=== PATIENT | male | born 1935 | race Caucasian/White ===

== ENCOUNTER 2017-06-06 19:26 | Emergency (ER) | payer MEDICARE, OTHER ==
[~2017-06-06] VITALS: Ht 167.6 cm; Wt 64.5 kg
[~2017-06-06 19:26] MED LIST: AMLO5TAB4 PO; ASPI81TA52 PO; AZIT250T PO; BENA20TA2 PO; CHLO25TA2 PO; CLIN-80 PO; CLOP75TA33 PO; LUBI8CAP PO; MULT-1179 PO; PANT40TA4 PO; SIMV10TA6 PO
[2017-06-06 19:29] VITALS: BP 145/75
== END 2017-06-06 20:52 | disposition home or self-care (01) ==
LOC: ER 19:26
DX: S30.811A Abrasion of abdominal wall, initial encounter (principal); E78.00 Pure hypercholesterolemia, unspecified; I10 Essential (primary) hypertension; K21.9 Gastro-esophageal reflux disease without esophagitis; Z95.0 Presence of cardiac pacemaker; Z86.73 Personal history of transient ischemic attack (TIA), and cerebral infarction without residual deficits; Z79.82 Long term (current) use of aspirin; Z79.899 Other long term (current) drug therapy; X58.XXXA Exposure to other specified factors, initial encounter; Y93.89 Activity, other specified; Y92.89 Other specified places as the place of occurrence of the external cause; Y99.8 Other external cause status
CPT/HCPCS: 99282

== ENCOUNTER 2017-09-11 14:31 | Emergency (ER) | payer MEDICARE, OTHER ==
[~2017-09-11] VITALS: Ht 167.6 cm; Wt 66.0 kg
[~2017-09-11 14:31] MED LIST changes: +ASCO10007; +ASCO10007 PO; +ATOR10TA87 PO; -AZIT250T PO; +CALCIUM PO; +CARV6.253 PO; +CHOL200016 PO; -CLIN-80 PO; +CLOP75TA15 PO; +CYAN5000 PO; +DOCU250C88 PO; +IRON18TA PO; +MELA3TAB PO; +NUTR113P PO; +OMEG10006 PO; +SAW/1TAB2 PO; +SELE200T25 PO; +UBID50TA3 PO; +VITA2500 PO; +[UNRECOGNIZED DRUG - CODE] PO; +[UNRECOGNIZED DRUG - OTHER] PO; +[UNRECOGNIZED DRUG - OTHER] PO
[2017-09-11 14:38] VITALS: BP 149/75
[2017-09-11] MEDS ORDERED: LIDOcaine 1.5% w/epinephrine 1:200,000 5ml ampul IJ ONE (15:00)
[2017-09-11] MEDS ORDERED: TETanus/Pertussis (Acell)/Diphther VAC/PF (Tdap-Adult) 0.5ml syringe IM ONE (15:40)
== END 2017-09-11 16:17 | disposition home or self-care (01) ==
LOC: ER 14:31
DX: S51.812A Laceration without foreign body of left forearm, initial encounter (principal); E78.00 Pure hypercholesterolemia, unspecified; I10 Essential (primary) hypertension; K21.9 Gastro-esophageal reflux disease without esophagitis; Z96.89 Presence of other specified functional implants; Z95.2 Presence of prosthetic heart valve; Z87.891 Personal history of nicotine dependence; Z79.82 Long term (current) use of aspirin; Z79.01 Long term (current) use of anticoagulants; Z79.899 Other long term (current) drug therapy; W54.0XXA Bitten by dog, initial encounter; Y93.89 Activity, other specified; Y92.89 Other specified places as the place of occurrence of the external cause; Y99.8 Other external cause status
CPT/HCPCS: 90471; 90715; 99284; A6449; J3490

== ENCOUNTER 2017-10-11 14:45 | Inpatient (IN) | payer MEDICARE, OTHER ==
[~2017-10-11] VITALS: Ht 167.6 cm; Wt 62.9 kg
[~2017-10-11 14:45] MED LIST changes: -BENA20TA2 PO; +BENA20TA82 PO; -CHOL200016 PO; +CHOL200085 PO
[2017-10-11 15:47] LABS: BASOPHILS % (AUTO) 0.6 % (0-1); EOSINOPHILS % (AUTO) 0.6 % (0-6); HEMATOCRIT 32.4 % (42.0-52.0); LYMPHOCYTES # (AUTO) 2.3 X10'3 (1.1-4.8); LYMPHOCYTES % (AUTO) 63.8 % (21-51); MEAN CORPUSCULAR HEMOGLOBIN 31.8 PG (27.0-31.0); MEAN CORPUSCULAR HGB CONC 33.9 % (33.0-36.5); MEAN PLATELET VOLUME 8.6 FL (7.4-10.4); MONOCYTES # (AUTO) 0.4 X10'3 (0-0.9); MONOCYTES % (AUTO) 10.3 % (2-12); NEUTROPHILS # (AUTO) 0.9 X10'3 (1.8-7.7); NEUTROPHILS % (AUTO) 24.7 % (42-75); PLATELET COUNT 126 X10'3 (140-440); RED BLOOD COUNT 3.44 X10'6 (4.70-6.10); RED CELL DISTRIBUTION WIDTH 14.9 % (11.5-14.5); WHITE BLOOD COUNT 3.6 X10'3 (4.5-11.0)
[2017-10-11 15:54] LABS: INR 1.1 INR; PARTIAL THROMBOPLASTIN TIME 30 SECONDS (22-32)
[2017-10-11 15:57] LABS: ALANINE AMINOTRANSFERASE 128 U/L (12-78); ALBUMIN/GLOBULIN RATIO 0.6 (1.1-1.5); ALKALINE PHOSPHATASE 368 IU/L (46-116); ANION GAP 10 (8-16); ASPARTATE AMINO TRANSFERASE 57 U/L (10-37); BILIRUBIN,TOTAL 0.3 MG/DL (0.1-1.0); BLOOD UREA NITROGEN 52 MG/DL (7-18); BUN/CREATININE RATIO 17.8 (5.4-32.0); CALCIUM 8.6 MG/DL (8.5-10.1); CHLORIDE 106 MMOL/L (99-107); CREATININE 2.92 MG/DL (0.60-1.10); GLUCOSE 94 MG/DL (70-104); POTASSIUM 4.9 MMOL/L (3.5-5.1); SODIUM 139 MMOL/L (135-145); TOTAL CARBON DIOXIDE 22.7 MMOL/L (24-32); eGFR 21 ML/MIN
[2017-10-11 16:20] LABS: TOTAL CELLS COUNTED 100
[2017-10-11 16:23] LABS: PLATELET ESTIMATE DECREASED; SMUDGE CELLS FEW
[2017-10-11 18:31] LABS: LIPASE 387 U/L (73-393)
[2017-10-11] MEDS ORDERED: normal saline 1000ml 1,000 ML IV SCH (20:44)
[2017-10-11] MEDS ORDERED: ondansetron/PF 4mg/2ml inj IV PRN (20:45)
[2017-10-11] MEDS ORDERED: FURO40TA4 PO (21:00)
[2017-10-11 22:00] VITALS: BP 137/71
[2017-10-12] VITALS: BP 125/68
[2017-10-12] MEDS: Melatonin 3mg tablet PO SCH ×2 (00:30→20:32)
[2017-10-12 03:32] LABS: BASOPHILS % (AUTO) 0.5 % (0-1); EOSINOPHILS % (AUTO) 0.6 % (0-6); HEMATOCRIT 30.2 % (42.0-52.0); LYMPHOCYTES # (AUTO) 1.7 X10'3 (1.1-4.8); MEAN CORPUSCULAR HEMOGLOBIN 31.3 PG (27.0-31.0); MEAN CORPUSCULAR HGB CONC 33.2 % (33.0-36.5); MEAN CORPUSCULAR VOLUME 94.2 FL (78-98); MEAN PLATELET VOLUME 8.6 FL (7.4-10.4); MONOCYTES # (AUTO) 0.3 X10'3 (0-0.9); MONOCYTES % (AUTO) 11.2 % (2-12); NEUTROPHILS # (AUTO) 0.6 X10'3 (1.8-7.7); NEUTROPHILS % (AUTO) 22.7 % (42-75); PLATELET COUNT 110 X10'3 (140-440); WHITE BLOOD COUNT 2.7 X10'3 (4.5-11.0)
[2017-10-12 03:58] LABS: PLATELET ESTIMATE NORMAL; TOTAL CELLS COUNTED 100
[2017-10-12 03:59] LABS: SMUDGE CELLS FEW
[2017-10-12 05:07] LABS: CHLORIDE 108 MMOL/L (99-107); POTASSIUM 4.3 MMOL/L (3.5-5.1)
[2017-10-12 05:25] LABS: ALANINE AMINOTRANSFERASE 106 U/L (12-78); ALBUMIN 2.7 G/DL (3.4-5.0); ALBUMIN/GLOBULIN RATIO 0.6 (1.1-1.5); ALKALINE PHOSPHATASE 310 IU/L (46-116); ANION GAP 13 (8-16); ASPARTATE AMINO TRANSFERASE 49 U/L (10-37); BILIRUBIN,TOTAL 0.3 MG/DL (0.1-1.0); BLOOD UREA NITROGEN 52 MG/DL (7-18); BUN/CREATININE RATIO 19.6 (5.4-32.0); CALCIUM 8.7 MG/DL (8.5-10.1); CREATININE 2.65 MG/DL (0.60-1.10); GLUCOSE 82 MG/DL (70-104); SODIUM 140 MMOL/L (135-145); TOTAL CARBON DIOXIDE 18.8 MMOL/L (24-32); TOTAL PROTEIN 7.3 G/DL (6.4-8.2); eGFR 23 ML/MIN
[2017-10-12 07:00] VITALS: BP 136/58
[2017-10-12] MEDS: docusate sod 250mg capsule PO SCH (07:48)
[2017-10-12] MEDS: pantoprazole 40mg Tablet.DR PO SCH (07:48)
[2017-10-12] MEDS: lisinopril 10 MG tablet PO SCH (07:49)
[2017-10-12] MEDS: atorvastatin 10mg tablet PO SCH (07:49)
[2017-10-12] MEDS: carvedilol 6.25mg tablet PO SCH ×2 (07:49→20:00)
[2017-10-12] MEDS: multivitamins, therapeutics tablet PO SCH (07:49)
[2017-10-12] MEDS: amLODIPine 5mg tablet PO SCH (07:50)
[2017-10-12] MEDS ORDERED: furosemide 20MG tablet PO SCH (08:00)
[2017-10-12] MEDS ORDERED: furosemide 40mg tablet PO SCH (08:00)
[2017-10-12] MEDS ORDERED: clopidogrel 75mg tablet PO SCH (08:00)
[2017-10-12] MEDS ORDERED: aspirin 81mg tablet.DR PO SCH (08:00)
[2017-10-12] MEDS: normal saline 1000ml 1,000 ML IV SCH ×2 (10:54→16:30)
[2017-10-12] MEDS ORDERED: normal saline 500ml IV soln 500 ML IV ONE (10:55)
[2017-10-12 12:00] VITALS: BP 121/59
[2017-10-12 12:53] LABS: CLARITY,URINE CLEAR (Clear); COLOR,URINE YELLOW (Yellow); GLUCOSE, URINE NEGATIVE (Neg); KETONES,URINE NEGATIVE (Neg); LEUKOCYTE ESTERASE ,URINE NEGATIVE (Neg); NITRITES, URINE NEGATIVE (Neg); OCCULT BLOOD,URINE NEGATIVE (Neg); PH,URINE 5.5 (4.8-8.0); PROTEIN,URINE NEGATIVE (Neg); UROBILINOGEN,URINE 0.2 E.U/dL (0.2-1.0)
[2017-10-12 12:57] LABS: UA COLLECTION TYPE NON-SPECIFIED
[2017-10-12 13:41] LABS: CREATINE KINASE 25 U/L (39-308); PHOSPHORUS 4.2 MG/DL (2.3-4.5)
[2017-10-12 20:00] VITALS: BP 99/47
[2017-10-12] MEDS ORDERED: Melatonin 3mg tablet PO SCH (21:00)
[2017-10-13] VITALS: BP 127/54
[2017-10-13] MEDS: normal saline 1000ml 1,000 ML IV SCH (04:08)
[2017-10-13 05:09] LABS: BASOPHILS % (AUTO) 0.7 % (0-1); EOSINOPHILS % (AUTO) 1.1 % (0-6); HEMOGLOBIN 9.6 g/dl (14.0-17.9); LYMPHOCYTES # (AUTO) 1.4 X10'3 (1.1-4.8); LYMPHOCYTES % (AUTO) 58.3 % (21-51); MEAN CORPUSCULAR HEMOGLOBIN 31.3 PG (27.0-31.0); MEAN CORPUSCULAR HGB CONC 33.3 % (33.0-36.5); MEAN CORPUSCULAR VOLUME 94.1 FL (78-98); MEAN PLATELET VOLUME 8.7 FL (7.4-10.4); MONOCYTES # (AUTO) 0.3 X10'3 (0-0.9); MONOCYTES % (AUTO) 11.6 % (2-12); NEUTROPHILS # (AUTO) 0.7 X10'3 (1.8-7.7); NEUTROPHILS % (AUTO) 28.3 % (42-75); PLATELET COUNT 112 X10'3 (140-440); RED BLOOD COUNT 3.08 X10'6 (4.70-6.10); RED CELL DISTRIBUTION WIDTH 15.1 % (11.5-14.5); WHITE BLOOD COUNT 2.5 X10'3 (4.5-11.0)
[2017-10-13 05:47] LABS: ALANINE AMINOTRANSFERASE 86 U/L (12-78); ALBUMIN 2.5 G/DL (3.4-5.0); ALBUMIN/GLOBULIN RATIO 0.6 (1.1-1.5); ALKALINE PHOSPHATASE 269 IU/L (46-116); ANION GAP 9 (8-16); ASPARTATE AMINO TRANSFERASE 47 U/L (10-37); BILIRUBIN,TOTAL 0.3 MG/DL (0.1-1.0); BLOOD UREA NITROGEN 46 MG/DL (7-18); BUN/CREATININE RATIO 18.7 (5.4-32.0); CALCIUM 8.4 MG/DL (8.5-10.1); CHLORIDE 110 MMOL/L (99-107); CREATININE 2.46 MG/DL (0.60-1.10); POTASSIUM 4.6 MMOL/L (3.5-5.1); SODIUM 140 MMOL/L (135-145); TOTAL CARBON DIOXIDE 21.2 MMOL/L (24-32); eGFR 25 ML/MIN
[2017-10-13 05:49] LABS: GLUCOSE 90 MG/DL (70-104)
[2017-10-13 06:08] LABS: LYMPHOCYTES % (MANUAL) 55 % (21-51); MONOCYTES % (MANUAL) 7 % (2-12); NEUTROPHILS % (MANUAL) 38 % (42-75); PLATELET ESTIMATE DECREASED; SMUDGE CELLS 1+; TOTAL CELLS COUNTED 100
[2017-10-13 07:00] VITALS: BP 159/72
[2017-10-13] MEDS: pantoprazole 40mg Tablet.DR PO SCH (07:18)
[2017-10-13] MEDS: lisinopril 10 MG tablet PO SCH (07:18)
[2017-10-13] MEDS: carvedilol 6.25mg tablet PO SCH (07:18)
[2017-10-13] MEDS: multivitamins, therapeutics tablet PO SCH (07:18)
[2017-10-13] MEDS: docusate sod 250mg capsule PO SCH (07:18)
[2017-10-13] MEDS: atorvastatin 10mg tablet PO SCH (07:18)
[2017-10-13] MEDS: amLODIPine 5mg tablet PO SCH (07:18)
[2017-10-13 11:42] VITALS: BP 125/48
== END 2017-10-13 15:46 | disposition home or self-care (01) | DRG 438 ==
LOC: ER 14:45 → ED HOLD 20:44 → CMPBEDREQ 21:47 → SUR 3N 21:50
PROVIDERS: ADMIT Internal Medicine; ATTEND Family Medicine
DX: K86.9 Disease of pancreas, unspecified (principal); N17.0 Acute kidney failure with tubular necrosis; E44.0 Moderate protein-calorie malnutrition; D61.9 Aplastic anemia, unspecified; N18.4 Chronic kidney disease, stage 4 (severe); E78.00 Pure hypercholesterolemia, unspecified; M10.9 Gout, unspecified; I25.10 Atherosclerotic heart disease of native coronary artery without angina pectoris; I12.9 Hypertensive chronic kidney disease with stage 1 through stage 4 chronic kidney disease, or unspecified chronic kidney disease; D63.8 Anemia in other chronic diseases classified elsewhere; I71.4 Abdominal aortic aneurysm, without rupture; K21.9 Gastro-esophageal reflux disease without esophagitis; Z86.73 Personal history of transient ischemic attack (TIA), and cerebral infarction without residual deficits; Z95.0 Presence of cardiac pacemaker; Z87.891 Personal history of nicotine dependence; Z95.2 Presence of prosthetic heart valve; Z68.22 Body mass index [BMI] 22.0-22.9, adult; Z79.899 Other long term (current) drug therapy
CPT/HCPCS: 36415; 71045; 74176; 80053; 81003; 82550; 83690; 83735; 83880; 84100; 84443; 84484; 85025; 85610; 85730; 86301; 87070; 93005; 93306; 99285; J7030

== ENCOUNTER 2019-01-04 06:51 | Emergency (ER) | payer MEDICARE, OTHER ==
[~2019-01-04] VITALS: Ht 170.2 cm; Wt 64.0 kg
[~2019-01-04 06:51] MED LIST changes: -ASCO10007; -ASCO10007 PO; -CALCIUM PO; -CHLO25TA2 PO; -CHOL200085 PO; -CLOP75TA33 PO; -CYAN5000 PO; -IRON18TA PO; -MELA3TAB PO; +MELA3TAB64 PO; -NUTR113P PO; -OMEG10006 PO; +ONDA4TAB12 PO; -PANT40TA4 PO; -SAW/1TAB2 PO; -SELE200T25 PO; -SIMV10TA6 PO; -UBID50TA3 PO; -VITA2500 PO; -[UNRECOGNIZED DRUG - CODE] PO; -[UNRECOGNIZED DRUG - OTHER] PO; -[UNRECOGNIZED DRUG - OTHER] PO
--- NOTE | 2019-01-04 07:09 | NUR ---
STATES HE TAKES PLAVIX
[2019-01-04] MEDS ORDERED: acetaminophen 325mg tablet PO ONE ×2 (07:45→07:50)
[2019-01-04 08:07] LABS: D-DIMER 1.77 MG/L FEU (0-0.50)
--- NOTE | 2019-01-04 08:29 | NUR ---
Karen from [facility] called she will be down in a few min.
[2019-01-04 09:10] VITALS: BP 155/77
== END 2019-01-04 09:12 | disposition home or self-care (01) ==
LOC: ER 06:52
DX: S86.912A Strain of unspecified muscle(s) and tendon(s) at lower leg level, left leg, initial encounter (principal); S40.022A Contusion of left upper arm, initial encounter; E78.00 Pure hypercholesterolemia, unspecified; I10 Essential (primary) hypertension; K21.9 Gastro-esophageal reflux disease without esophagitis; F10.99 Alcohol use, unspecified with unspecified alcohol-induced disorder; Z86.73 Personal history of transient ischemic attack (TIA), and cerebral infarction without residual deficits; Z95.0 Presence of cardiac pacemaker; Z79.82 Long term (current) use of aspirin; Z79.899 Other long term (current) drug therapy; X58.XXXA Exposure to other specified factors, initial encounter; Y93.89 Activity, other specified; Y92.89 Other specified places as the place of occurrence of the external cause; Y99.8 Other external cause status; Y90.9 Presence of alcohol in blood, level not specified
CPT/HCPCS: 36415; 85379; 93971; 99284

== ENCOUNTER 2019-11-03 22:24 | Emergency (ER) | payer MEDICARE, OTHER ==
[~2019-11-03] VITALS: Ht 167.6 cm; Wt 69.0 kg
[~2019-11-03 22:24] MED LIST changes: -DOCU250C88 PO; +DOCU250C89 PO; +MELA3TAB39 PO; -MELA3TAB64 PO
[2019-11-04 00:32] LABS: BASOPHILS % (AUTO) 0.5 % (0-1); EOSINOPHILS # (AUTO) 0.1 X10'3 (0-0.9); EOSINOPHILS % (AUTO) 2.3 % (0-6); LYMPHOCYTES # (AUTO) 0.8 X10'3 (1.1-4.8); LYMPHOCYTES % (AUTO) 13.5 % (21-51); MEAN CORPUSCULAR HEMOGLOBIN 32.3 PG (27.0-31.0); MEAN CORPUSCULAR HGB CONC 33.4 g/dL (33.0-36.5); MEAN CORPUSCULAR VOLUME 96.6 FL (78-98); MEAN PLATELET VOLUME 9.3 FL (7.4-10.4); MONOCYTES # (AUTO) 0.5 X10'3 (0-0.9); MONOCYTES % (AUTO) 8.2 % (2-12); NEUTROPHILS # (AUTO) 4.4 X10'3 (1.8-7.7); NEUTROPHILS % (AUTO) 75.5 % (42-75); PLATELET COUNT 126 X10'3 (140-440); RED BLOOD COUNT 3.11 X10'6 (4.70-6.10); RED CELL DISTRIBUTION WIDTH 15.9 % (11.5-14.5); WHITE BLOOD COUNT 5.8 X10'3 (4.5-11.0)
[2019-11-04] MEDS ORDERED: ciprofloxacin 250mg tablet PO ONE (00:40)
[2019-11-04] MEDS ORDERED: metroNIDAZOLE 500mg tablet PO ONE (00:40)
[2019-11-04 00:43] LABS: ALANINE AMINOTRANSFERASE 15 U/L (12-78); ALBUMIN 3.2 G/DL (3.4-5.0); ALBUMIN/GLOBULIN RATIO 0.9 (1.1-1.5); ALKALINE PHOSPHATASE 88 IU/L (46-116); ANION GAP 8 (8-16); ASPARTATE AMINO TRANSFERASE 13 U/L (10-37); BILIRUBIN,TOTAL 0.2 MG/DL (0.1-1.0); BLOOD UREA NITROGEN 54 MG/DL (7-18); BUN/CREATININE RATIO 22.4 (5.4-32.0); CALCIUM 8.5 MG/DL (8.5-10.1); CHLORIDE 108 MMOL/L (99-107); CREATININE 2.41 MG/DL (0.60-1.10); GLUCOSE 93 MG/DL (70-104); LIPASE 220 U/L (73-393); POTASSIUM 5.1 MMOL/L (3.5-5.1); SODIUM 137 MMOL/L (135-145); TOTAL CARBON DIOXIDE 21.4 MMOL/L (24-32); TOTAL PROTEIN 6.8 G/DL (6.4-8.2); eGFR 26 ML/MIN
[2019-11-04] MEDS ORDERED: CIPR-259 PO (00:59)
[2019-11-04] MEDS ORDERED: METR500T PO (00:59)
[2019-11-04 01:22] VITALS: BP 140/67
--- NOTE | 2019-11-04 01:22 | NUR ---
pt unable to give ua
[2019-11-04 01:26] LABS: PARTIAL THROMBOPLASTIN TIME 27 SECONDS (22-32)
== END 2019-11-04 01:31 | disposition home or self-care (01) ==
LOC: ER 22:25
DX: K57.32 Diverticulitis of large intestine without perforation or abscess without bleeding (principal); N18.9 Chronic kidney disease, unspecified; D64.9 Anemia, unspecified; E78.00 Pure hypercholesterolemia, unspecified; I12.9 Hypertensive chronic kidney disease with stage 1 through stage 4 chronic kidney disease, or unspecified chronic kidney disease; K21.9 Gastro-esophageal reflux disease without esophagitis; Z86.73 Personal history of transient ischemic attack (TIA), and cerebral infarction without residual deficits; Z79.82 Long term (current) use of aspirin; Z79.899 Other long term (current) drug therapy
CPT/HCPCS: 36415; 74176; 80053; 83605; 83690; 85025; 85384; 85610; 85730; 99284; J3490

== ENCOUNTER → 2020-02-08 | Emergency (ER) | payer MEDICARE, OTHER ==
[~2020-02-08] VITALS: Ht 167.6 cm; Wt 68.0 kg
[~2020-02-08] MED LIST changes: +ALLO100T PO; -AMLO5TAB4 PO; +ASCO500C12 PO; +ASPI-611 PO; -ASPI81TA52 PO; +ATOR10TA70 PO; -ATOR10TA87 PO; +BENA10TA74 PO; -BENA20TA82 PO; +BISA10SU60 RC; -CARV6.253 PO; +CARV6.2555 PO; -CLOP75TA15 PO; -DOCU250C89 PO; -LUBI8CAP PO; -MULT-1179 PO; -ONDA4TAB12 PO; +PANT40TA54 PO; +POLY17PO10 PO; +bisacodyl 10mg suppository rectal RC STA; +lactulose 20gm/30ml cup PO ONE; +mineral oil 133ml enema RC PRN; +polyethylene glycol 3350 17gm powd pack PO STA
--- NOTE | 2020-02-08 10:36 | NUR ---
To x ray with tech
--- NOTE | 2020-02-08 11:09 | NUR ---
Pt resting in bed, DRAKE Storey administered suppository and did rectal exam. Soft, brown, dre like stool in rectal vault. Commode at bedside and pt instructed to call for assistance.
--- NOTE | 2020-02-08 12:33 | NUR ---
Sugar soda enema done at this time with assist of LATONIA Pollock. Pt tolerated well. Up to BSC at this time. No BM since arrival to ER.
--- NOTE | 2020-02-08 13:20 | NUR ---
Pt up to [facility] to have very large BM, soft brown stool. Reports feeling better afterward. Did not need Mineral oil enema. PA notified.
[2020-02-08 13:36] VITALS: BP 171/74
== END | disposition home or self-care (01) ==
LOC: ER 10:20
DX: K59.00 Constipation, unspecified (principal); E78.00 Pure hypercholesterolemia, unspecified; I10 Essential (primary) hypertension; K21.9 Gastro-esophageal reflux disease without esophagitis; M10.9 Gout, unspecified; Z86.73 Personal history of transient ischemic attack (TIA), and cerebral infarction without residual deficits; Z95.0 Presence of cardiac pacemaker; Z72.89 Other problems related to lifestyle; Z79.82 Long term (current) use of aspirin; Z79.899 Other long term (current) drug therapy
CPT/HCPCS: 74018; 99284

== ENCOUNTER 2020-06-28 18:45 | Emergency (ER) | payer MEDICARE, OTHER ==
[~2020-06-28] VITALS: Ht 167.6 cm; Wt 60.9 kg
[~2020-06-28 18:45] MED LIST changes: -POLY17PO10 PO; -bisacodyl 10mg suppository rectal RC STA; -lactulose 20gm/30ml cup PO ONE; -mineral oil 133ml enema RC PRN; -polyethylene glycol 3350 17gm powd pack PO STA
[2020-06-28 18:59] VITALS: BP 124/53
[2020-06-28] MEDS ORDERED: MUPI22OI30 TOP (20:33)
== END 2020-06-28 20:49 | disposition home or self-care (01) ==
LOC: ER 18:46
DX: L01.09 Other impetigo (principal); E78.00 Pure hypercholesterolemia, unspecified; I10 Essential (primary) hypertension; K21.9 Gastro-esophageal reflux disease without esophagitis; M10.9 Gout, unspecified; Z86.73 Personal history of transient ischemic attack (TIA), and cerebral infarction without residual deficits; Z95.0 Presence of cardiac pacemaker; Z98.890 Other specified postprocedural states; Z72.89 Other problems related to lifestyle; Z79.82 Long term (current) use of aspirin; Z79.899 Other long term (current) drug therapy
CPT/HCPCS: 99283

== ENCOUNTER 2020-11-24 07:14 | Emergency (ER) | payer MEDICARE, BC ==
[~2020-11-24] VITALS: Ht 167.6 cm; Wt 65.0 kg
[2020-11-24 07:25] VITALS: BP 151/69
[2020-11-24] MEDS ORDERED: HYDR28CR14 TOP (07:45)
== END 2020-11-24 07:53 | disposition home or self-care (01) ==
LOC: ER 07:17
DX: L30.9 Dermatitis, unspecified (principal); E78.00 Pure hypercholesterolemia, unspecified; I10 Essential (primary) hypertension; K21.9 Gastro-esophageal reflux disease without esophagitis
CPT/HCPCS: 99282

== ENCOUNTER 2021-08-20 13:04 | Emergency (ER) | payer MEDICARE, BC ==
[~2021-08-20] VITALS: Ht 167.6 cm; Wt 59.0 kg
[~2021-08-20 13:04] MED LIST changes: +HYDR28CR14 TOP
[2021-08-20 13:32] VITALS: BP 123/64
[2021-08-20] MEDS ORDERED: LIDOcaine 1% 30ml preserv. free vial IJ STA (16:00)
[2021-08-20] MEDS ORDERED: TETanus/Pertussis (Acell)/Diphther VAC/PF (Tdap-Adult) 0.5ml syringe IMVAC ONE (16:50)
== END 2021-08-20 17:09 | disposition home or self-care (01) ==
LOC: ER 13:04
DX: S61.211A Laceration without foreign body of left index finger without damage to nail, initial encounter (principal); E78.00 Pure hypercholesterolemia, unspecified; I10 Essential (primary) hypertension; K21.9 Gastro-esophageal reflux disease without esophagitis; Z72.89 Other problems related to lifestyle; Z86.73 Personal history of transient ischemic attack (TIA), and cerebral infarction without residual deficits; Z79.82 Long term (current) use of aspirin; Z79.899 Other long term (current) drug therapy; W31.89XA Contact with other specified machinery, initial encounter; Y93.89 Activity, other specified; Y92.89 Other specified places as the place of occurrence of the external cause; Y99.0 Civilian activity done for income or pay
CPT/HCPCS: 12001; 73140; 90471; 90715; 99283

== ENCOUNTER 2022-08-29 10:24 | Inpatient (IN) | payer MEDICARE, BC ==
[~2022-08-29] VITALS: Ht 167.6 cm; Wt 56.8 kg
[~2022-08-29 10:24] MED LIST changes: +AMLO5TAB16 PO; +AMOX-117 PO; -ASPI-611 PO; -BENA10TA74 PO; -BISA10SU60 RC; +CHOL400T32 PO; +FAMO20TA8 PO; +FLUT16SP26 BOTHNARES; +FURO20TA4 PO; -HYDR28CR14 TOP; +ISOS30TA84 PO; -PANT40TA54 PO; +TRAM50TA2 PO
[2022-08-29 11:08] LABS: MEAN PLATELET VOLUME 8.8 FL (7.4-10.4); MONOCYTES # (AUTO) 0.4 X10'3 (0-0.9)
[2022-08-29 11:11] LABS: BASOPHILS % (AUTO) 0.7 % (0-1); EOSINOPHILS # (AUTO) 0.1 X10'3 (0-0.9); EOSINOPHILS % (AUTO) 3.1 % (0-6); HEMATOCRIT 32.9 % (42.0-52.0); LYMPHOCYTES # (AUTO) 0.7 X10'3 (1.1-4.8); LYMPHOCYTES % (AUTO) 17.5 % (21-51); MEAN CORPUSCULAR HEMOGLOBIN 31.6 PG (27.0-31.0); MEAN CORPUSCULAR HGB CONC 33.5 g/dL (33.0-36.5); MEAN CORPUSCULAR VOLUME 94.3 FL (78-98); NEUTROPHILS # (AUTO) 2.8 X10'3 (1.8-7.7); NEUTROPHILS % (AUTO) 68.7 % (42-75); PLATELET COUNT 164 X10'3 (140-440); RED BLOOD COUNT 3.48 X10'6 (4.70-6.10); RED CELL DISTRIBUTION WIDTH 14.9 % (11.5-14.5)
[2022-08-29 11:21] LABS: ALANINE AMINOTRANSFERASE 24 U/L (12-78); ALBUMIN 3.1 G/DL (3.4-5.0); ALBUMIN/GLOBULIN RATIO 0.9 (1.1-1.5); ALKALINE PHOSPHATASE 78 IU/L (46-116); ANION GAP 5 (8-16); ASPARTATE AMINO TRANSFERASE 24 U/L (10-37); BILIRUBIN,TOTAL 0.3 MG/DL (0.1-1.0); BLOOD UREA NITROGEN 84 MG/DL (7-18); CALCIUM 9.4 MG/DL (8.5-10.1); CHLORIDE 104 MMOL/L (99-107); GLUCOSE 119 MG/DL (70-104); POTASSIUM 4.5 MMOL/L (3.5-5.1); SODIUM 142 MMOL/L (135-145); TOTAL CARBON DIOXIDE 32.8 MMOL/L (24-32); TOTAL PROTEIN 6.5 G/DL (6.4-8.2); eGFR 26 ML/MIN
[2022-08-29] MEDS ORDERED: ondansetron/PF 4mg/2ml inj IV PRN (16:05)
[2022-08-29] MEDS ORDERED: magnesium Cl slow-release 64mg tablet PO PRN (16:05)
[2022-08-29] MEDS ORDERED: acetaminophen 325mg tablet PO PRN ×2 (16:05)
[2022-08-29] MEDS ORDERED: HYDROcodone/acetaminophen 5mg/325mg tablet PO PRN (16:05)
[2022-08-29] MEDS ORDERED: mag hydrox/Alum hydrox/simeth 30ml oral suspension PO PRN (16:05)
[2022-08-29] MEDS ORDERED: morphine 2 MG/ML inj. syringe IV PRN ×2 (16:05)
[2022-08-29] MEDS ORDERED: magnesium 4gm in 100ml NS 100 ML IV PRN (16:05)
[2022-08-29] MEDS ORDERED: magnesium hydroxide 30ml (MOM) UD suspension PO PRN (16:05)
[2022-08-29] MEDS ORDERED: HYDROcodone/acetaminophen 10/325mg tab PO PRN (16:05)
[2022-08-29] MEDS ORDERED: potassium Cl 40MEQ/1/2NS 520ml 520 ML IV PRN (16:05)
[2022-08-29] MEDS ORDERED: potassium Cl 20 mEq SR tablet PO PRN ×2 (16:05)
[2022-08-29] MEDS ORDERED: magnesium 2GM in 50ml NS 50 ML IV PRN (16:05)
[2022-08-29 16:48] LABS: MAGNESIUM 3.1 MG/DL (1.5-2.4)
[2022-08-29] MEDS ORDERED: DONE-46 PO (17:17)
[2022-08-29] MEDS ORDERED: ISOS30TA84 PO (17:17)
[2022-08-29] MEDS ORDERED: Melatonin 3mg tablet PO PRN (17:20)
[2022-08-29] MEDS: normal saline 1000ml 1,000 ML IV SCH (17:23)
--- NOTE | 2022-08-29 18:00 | NUR ---
RECEIVED REPORT FROM ROSINA LINCOLN.
[2022-08-29] MEDS: carvedilol 6.25mg tablet PO SCH (18:15)
[2022-08-29] MEDS: amLODIPine 5mg tablet PO SCH (18:16)
--- NOTE | 2022-08-29 18:28 | NUR ---
ECHO AT BEDSIDE
--- NOTE | 2022-08-29 19:44 | NUR ---
PACEMAKER INTERROGATED
[2022-08-29] MEDS: famotidine 20mg tablet PO SCH (20:04)
[2022-08-29] MEDS: K and/or MAG REPLACEMENT MC SCH (20:14)
--- NOTE | 2022-08-29 21:24 | NUR ---
REPORT GIVEN TO ORTHO NURSE
[2022-08-30 03:04] LABS: BASOPHILS % (AUTO) 0.5 % (0-1); EOSINOPHILS # (AUTO) 0.1 X10'3 (0-0.9); EOSINOPHILS % (AUTO) 3.3 % (0-6); HEMATOCRIT 36.1 % (42.0-52.0); HEMOGLOBIN 11.9 g/dl (14.0-17.9); LYMPHOCYTES # (AUTO) 0.5 X10'3 (1.1-4.8); MEAN CORPUSCULAR HEMOGLOBIN 31.2 PG (27.0-31.0); MEAN CORPUSCULAR HGB CONC 32.9 g/dL (33.0-36.5); MEAN CORPUSCULAR VOLUME 94.7 FL (78-98); MEAN PLATELET VOLUME 8.6 FL (7.4-10.4); MONOCYTES # (AUTO) 0.5 X10'3 (0-0.9); MONOCYTES % (AUTO) 10.9 % (2-12); NEUTROPHILS # (AUTO) 3.2 X10'3 (1.8-7.7); NEUTROPHILS % (AUTO) 73.3 % (42-75); PLATELET COUNT 145 X10'3 (140-440); RED BLOOD COUNT 3.81 X10'6 (4.70-6.10); RED CELL DISTRIBUTION WIDTH 15.1 % (11.5-14.5); WHITE BLOOD COUNT 4.3 X10'3 (4.5-11.0)
[2022-08-30 03:11] LABS: GLUCOSE 104 MG/DL (70-104)
[2022-08-30 03:12] LABS: ALBUMIN 2.8 G/DL (3.4-5.0); ANION GAP 8 (8-16); BLOOD UREA NITROGEN 69 MG/DL (7-18); BUN/CREATININE RATIO 31.9 (10.0-20.0); CALCIUM 9.4 MG/DL (8.5-10.1); CHLORIDE 107 MMOL/L (99-107); CREATININE 2.16 MG/DL (0.60-1.10); MAGNESIUM 3.1 MG/DL (1.5-2.4); POTASSIUM 4.7 MMOL/L (3.5-5.1); SODIUM 143 MMOL/L (135-145); TOTAL CARBON DIOXIDE 28.2 MMOL/L (24-32); eGFR 29 ML/MIN
--- NOTE | 2022-08-30 05:15 | NUR ---
Patient in room PCU 3024. I have received report from ED RN and had the opportunity to ask questions and assume patient care.
[2022-08-30 05:30] VITALS: BP 126/70
--- NOTE | 2022-08-30 05:30 | NUR ---
Pt. arrived via gurney fr/ED in no acute distress. Oriented to bed, room, surroundings, and POC. IV NS started per order, 2 RN skin check completed, and MRSA swab collected. [place] admin for C/O L sided rib pain. Pt. tolerating PO fluids well, urinal left at bedside.
[2022-08-30] MEDS: normal saline 1000ml 1,000 ML IV SCH (05:46)
[2022-08-30 06:00] VITALS: BP 123/68
--- NOTE | 2022-08-30 06:44 | NUR ---
Problems reprioritized. Patient report given, questions answered & plan of care reviewed with Lazara LINCOLN.
--- NOTE | 2022-08-30 06:46 | NUR ---
I have received report from LATONIA Cook, and had the opportunity to ask questions and assume patient care. No acute distress at this time.
[2022-08-30] MEDS ORDERED: enoxaparin 40mg/0.4ml syringe SUBCUT SCH (08:00)
[2022-08-30] MEDS ORDERED: allopurinol 100mg tablet PO SCH (08:00)
[2022-08-30] MEDS ORDERED: atorvastatin 10mg tablet PO SCH (08:00)
[2022-08-30] MEDS ORDERED: ascorbic acid 500mg tablet PO SCH (08:00)
[2022-08-30] MEDS: K and/or MAG REPLACEMENT MC SCH (08:00)
[2022-08-30] MEDS ORDERED: donepezil 5mg tablet PO SCH (08:00)
[2022-08-30] MEDS ORDERED: isosorbide mononitrate 30mg tab.SR.24H PO SCH (08:00)
[2022-08-30] MEDS: carvedilol 6.25mg tablet PO SCH (08:43)
[2022-08-30] MEDS: famotidine 20mg tablet PO SCH (08:43)
[2022-08-30] MEDS: amLODIPine 5mg tablet PO SCH (08:43)
[2022-08-30 10:00] VITALS: BP 137/65
--- NOTE | 2022-08-30 10:17 | NUR ---
Patient is being transferred [facility] to [facility] for [facility] via wheel chair. Pt is S.LElias NAD
[2022-08-30] MEDS ORDERED: enoxaparin 30mg/0.3ml syringe SUBCUT SCH (11:55)
[2022-08-30] MEDS ORDERED: famotidine 20mg tablet PO SCH (11:56)
--- NOTE | 2022-08-30 14:51 | NUR ---
AGREE WITH MANAGER OF FINANCIAL PLANNING AM ASSESSMENT.
--- NOTE | 2022-08-30 16:30 | NUR ---
Patient discharged w/ instructions on proceeding w/ the providers orders. Patient is stable for baseline, VS WNL, went over all instructions for the patients medications. IV d/c'd from the left forearm, cannula intact. All belongings sent w/ patient that where present on the admission assessment. Ambulated downstairs w/ family friend and a staff member. Patient was in no acute distress at this time.
[2022-09-01] MEDS ORDERED: allopurinol 100mg tablet PO SCH (08:00)
== END 2022-08-30 16:31 | disposition home health service (06) | DRG 281 ==
LOC: ER 10:24 → ED HOLD 16:23 → EDBEDREQ 08-30 04:36 → PCU 3S 08-30 04:56
PROVIDERS: ADMIT Family Medicine; ATTEND Family Medicine
PROC: CB121ZZ Planar Nuclear Medicine Imaging of Lungs and Bronchi using Technetium 99m (Tc-99m) (ICD-10-PCS; principal; 2022-08-30)
DX: T82.119A Breakdown (mechanical) of unspecified cardiac electronic device, initial encounter (principal); I21.A1 Myocardial infarction type 2; N17.9 Acute kidney failure, unspecified; R07.89 Other chest pain; E78.00 Pure hypercholesterolemia, unspecified; K21.9 Gastro-esophageal reflux disease without esophagitis; M10.9 Gout, unspecified; I12.9 Hypertensive chronic kidney disease with stage 1 through stage 4 chronic kidney disease, or unspecified chronic kidney disease; Z66 Do not resuscitate; N18.9 Chronic kidney disease, unspecified; Z95.0 Presence of cardiac pacemaker; Z86.73 Personal history of transient ischemic attack (TIA), and cerebral infarction without residual deficits; Z80.8 Family history of malignant neoplasm of other organs or systems; Z82.49 Family history of ischemic heart disease and other diseases of the circulatory system; Z79.899 Other long term (current) drug therapy
CPT/HCPCS: 36415; 71045; 78582; 80048; 80053; 83735; 83880; 84484; 85025; 87081; 93308; 97116; 97161; 97530; 99285; A9539; A9540; G0378; J1650; J2270; J2405; J7030

== ENCOUNTER 2023-01-19 09:51 | Inpatient (IN) | payer MEDICARE, BC ==
[~2023-01-19] VITALS: Ht 170.2 cm; Wt 38.2 kg
[~2023-01-19 09:51] MED LIST changes: -AMOX-117 PO; +DONE-46 PO; -FURO20TA4 PO; -TRAM50TA2 PO
[2023-01-19 10:23] LABS: BASOPHILS % (AUTO) 1.2 % (0-1); EOSINOPHILS # (AUTO) 0.1 X10'3 (0-0.9); EOSINOPHILS % (AUTO) 3.8 % (0-6); HEMOGLOBIN 7.2 g/dl (14.0-17.9); LYMPHOCYTES # (AUTO) 0.4 X10'3 (1.1-4.8); LYMPHOCYTES % (AUTO) 10.4 % (21-51); MEAN CORPUSCULAR HEMOGLOBIN 31.5 PG (27.0-31.0); MEAN CORPUSCULAR HGB CONC 32.9 g/dL (33.0-36.5); MEAN CORPUSCULAR VOLUME 95.6 FL (78-98); MEAN PLATELET VOLUME 8.8 FL (7.4-10.4); MONOCYTES # (AUTO) 0.2 X10'3 (0-0.9); MONOCYTES % (AUTO) 6.1 % (2-12); NEUTROPHILS % (AUTO) 78.5 % (42-75); PLATELET COUNT 133 X10'3 (140-440); RED BLOOD COUNT 2.29 X10'6 (4.70-6.10); RED CELL DISTRIBUTION WIDTH 17.5 % (11.5-14.5); WHITE BLOOD COUNT 3.8 X10'3 (4.5-11.0)
[2023-01-19 10:27] LABS: HEMATOCRIT 21.9 % (42.0-52.0)
[2023-01-19 10:39] LABS: ALANINE AMINOTRANSFERASE 13 U/L (12-78); ALBUMIN 2.2 G/DL (3.4-5.0); ALBUMIN/GLOBULIN RATIO 0.8 (1.1-1.5); ALKALINE PHOSPHATASE 47 IU/L (46-116); ANION GAP 8 (8-16); ASPARTATE AMINO TRANSFERASE 18 U/L (10-37); BILIRUBIN,TOTAL 0.3 MG/DL (0.1-1.0); BLOOD UREA NITROGEN 92 MG/DL (7-18); BUN/CREATININE RATIO 25.2 (10.0-20.0); CALCIUM 8.3 MG/DL (8.5-10.1); CHLORIDE 106 MMOL/L (99-107); CREATININE 3.65 MG/DL (0.60-1.10); GLUCOSE 95 MG/DL (70-104); LIPASE 74 U/L (16-77); SODIUM 140 MMOL/L (135-145); TOTAL CARBON DIOXIDE 25.9 MMOL/L (24-32); eCRCL 12 ML/MIN; eGFR 16 ML/MIN
[2023-01-19] MEDS ORDERED: normal saline 500ml IV soln 500 ML IV ONE ×2 (11:30→13:10)
[2023-01-19 12:16] LABS: MAGNESIUM 2.4 MG/DL (1.5-2.4)
[2023-01-19 13:01] LABS: PRO BRAIN NATRIURETIC PEPTIDE > 30000 PG/ML (0-450)
[2023-01-19] MEDS ORDERED: magnesium 4gm in 100ml NS 100 ML IV PRN (13:35)
[2023-01-19] MEDS ORDERED: magnesium Cl slow-release 64mg tablet PO PRN (13:35)
[2023-01-19] MEDS ORDERED: HYDROcodone/acetaminophen 5mg/325mg tablet PO PRN (13:35)
[2023-01-19] MEDS ORDERED: magnesium 2GM in 50ml NS 50 ML IV PRN (13:35)
[2023-01-19] MEDS ORDERED: acetaminophen 325mg tablet PO PRN ×2 (13:35)
[2023-01-19] MEDS ORDERED: potassium Cl 20 mEq SR tablet PO PRN ×2 (13:35)
[2023-01-19] MEDS ORDERED: potassium Cl 40MEQ/1/2NS 520ml 520 ML IV PRN (13:35)
[2023-01-19] MEDS ORDERED: ondansetron/PF 4mg/2ml inj IV PRN (13:35)
[2023-01-19] MEDS: normal saline 1000ml 1,000 ML IV SCH (15:17)
[2023-01-19] MEDS: pantoprazole 40MG/NS 100ML BAG 100 ML IV SCH ×2 (15:20→23:01)
[2023-01-19 16:27] VITALS: BP 103/50; PULSE 72; RESP 18; TEMP 98.3
[2023-01-19 16:49] VITALS: BP 115/61; PULSE 66; RESP 18; TEMP 97.9
[2023-01-19] MEDS: QUEtiapine 25mg tablet PO SCH ×2 (17:48→21:00)
[2023-01-19 17:49] VITALS: BP 133/81; PULSE 74; RESP 16; TEMP 97
[2023-01-19 18:26] LABS: BILIRUBIN,URINE NEGATIVE (Neg); CLARITY,URINE SLIGHTLY CLOUDY (Clear); COLOR,URINE YELLOW (Yellow); GLUCOSE, URINE NEGATIVE (Neg); KETONES,URINE NEGATIVE (Neg); LEUKOCYTE ESTERASE ,URINE NEGATIVE (Neg); NITRITES, URINE NEGATIVE (Neg); OCCULT BLOOD,URINE MODERATE (Neg); PROTEIN,URINE 100 mg/dl (Neg); UROBILINOGEN,URINE 0.2 E.U/dL (0.2-1.0)
[2023-01-19] MEDS: Melatonin 3mg tablet PO SCH ×2 (18:40→21:00)
[2023-01-19 18:42] LABS: UA COLLECTION TYPE VOIDED
[2023-01-19 18:43] LABS: RBC,URINE 20-50 /HPF (0-2); WBC,URINE 0-4 /HPF (0-4)
[2023-01-19 18:44] LABS: BACTERIA,URINE 1+ /HPF (Neg); MUCUS STRANDS FEW /LPF (Neg); SQUAMOUS EPITHELIAL CELL,UR FEW /LPF (FEW); TRANSITIONAL EPI CELLS,URINE FEW /HPF
[2023-01-19 21:55] VITALS: RESP 16; O2SAT 96
[2023-01-20] VITALS (15 sets, daily range): BP systolic 97–133; BP diastolic 33–61; PULSE 65–99; RESP 16–22; TEMP 97.6–99; O2SAT 92–97
[2023-01-20] MEDS: morphine 2 MG/ML inj. syringe IV PRN ×4 (01:53→22:18)
[2023-01-20] MEDS: normal saline 1000ml 1,000 ML IV SCH (04:22)
[2023-01-20] MEDS: pantoprazole 40MG/NS 100ML BAG 100 ML IV SCH ×4 (04:35→16:00)
[2023-01-20 07:09] LABS: ALANINE AMINOTRANSFERASE 13 U/L (12-78); ALBUMIN/GLOBULIN RATIO 0.8 (1.1-1.5); ALKALINE PHOSPHATASE 42 IU/L (46-116); ANION GAP 13 (8-16); ASPARTATE AMINO TRANSFERASE 18 U/L (10-37); BILIRUBIN,TOTAL 0.4 MG/DL (0.1-1.0); BLOOD UREA NITROGEN 135 MG/DL (7-18); BUN/CREATININE RATIO 33.7 (10.0-20.0); CALCIUM 8.1 MG/DL (8.5-10.1); CHLORIDE 110 MMOL/L (99-107); CREATININE 4.01 MG/DL (0.60-1.10); GLUCOSE 88 MG/DL (70-104); POTASSIUM 4.6 MMOL/L (3.5-5.1); SODIUM 144 MMOL/L (135-145); TOTAL CARBON DIOXIDE 21.3 MMOL/L (24-32); TOTAL PROTEIN 4.5 G/DL (6.4-8.2); eCRCL 11 ML/MIN; eGFR 14 ML/MIN
[2023-01-20 07:36] LABS: BASOPHILS % (AUTO) 0.4 % (0-1); EOSINOPHILS % (AUTO) 0.2 % (0-6); LYMPHOCYTES # (AUTO) 0.5 X10'3 (1.1-4.8); LYMPHOCYTES % (AUTO) 8.4 % (21-51); MEAN CORPUSCULAR HEMOGLOBIN 30.6 PG (27.0-31.0); MEAN CORPUSCULAR HGB CONC 32.5 g/dL (33.0-36.5); MEAN CORPUSCULAR VOLUME 94.2 FL (78-98); MEAN PLATELET VOLUME 9.3 FL (7.4-10.4); MONOCYTES # (AUTO) 0.4 X10'3 (0-0.9); MONOCYTES % (AUTO) 6.4 % (2-12); NEUTROPHILS # (AUTO) 5.3 X10'3 (1.8-7.7); NEUTROPHILS % (AUTO) 84.6 % (42-75); PLATELET COUNT 88 X10'3 (140-440); RED BLOOD COUNT 1.73 X10'6 (4.70-6.10); RED CELL DISTRIBUTION WIDTH 22.4 % (11.5-14.5); WHITE BLOOD COUNT 6.2 X10'3 (4.5-11.0)
[2023-01-20 07:39] LABS: HEMATOCRIT 16.3 % (42.0-52.0); HEMOGLOBIN 5.3 g/dl (14.0-17.9)
[2023-01-20] MEDS ORDERED: normal saline 500ml IV soln 500 ML IV ONE (08:10)
[2023-01-20 09:35] LABS: ANISOCYTOSIS 3+; PLATELET ESTIMATE DECREASED
[2023-01-20 09:36] LABS: BURR CELLS FEW; ELLIPTOCYTES 1+; POLYCHROMASIA FEW; ROULEAUX 1+
[2023-01-20] MEDS ORDERED: bisacodyl 5mg tablet.DR PO PRN (10:50)
[2023-01-20] MEDS ORDERED: morphine 10mg/0.5ml (conc. morphine) oral syringe PO PRN (21:35)
[2023-01-20] MEDS: QUEtiapine 25mg tablet PO SCH (22:25)
[2023-01-21 00:15] VITALS: BP 133/52; PULSE 67; RESP 20; TEMP 98.6
[2023-01-21 01:15] VITALS: BP 137/56; PULSE 71; RESP 20
[2023-01-21] MEDS: morphine 10mg/0.5ml (conc. morphine) oral syringe PO PRN ×2 (03:40→08:07)
[2023-01-21 08:07] VITALS: RESP 15
== END 2023-01-21 08:30 | disposition hospice, home (50) | DRG 377 ==
LOC: ER 09:52 → ED HOLD 13:39 → ORTHO 4S 21:06
PROVIDERS: ADMIT Internal Medicine; ATTEND Internal Medicine
PROC: 30233N1 Transfusion of Nonautologous Red Blood Cells into Peripheral Vein, Percutaneous Approach (ICD-10-PCS; principal; 2023-01-19)
DX: K92.2 Gastrointestinal hemorrhage, unspecified (principal); G93.41 Metabolic encephalopathy; I21.A1 Myocardial infarction type 2; I13.0 Hypertensive heart and chronic kidney disease with heart failure and stage 1 through stage 4 chronic kidney disease, or unspecified chronic kidney disease; Z66 Do not resuscitate; E78.00 Pure hypercholesterolemia, unspecified; I25.10 Atherosclerotic heart disease of native coronary artery without angina pectoris; I50.9 Heart failure, unspecified; F03.A0 Unspecified dementia, mild, without behavioral disturbance, psychotic disturbance, mood disturbance, and anxiety; K21.9 Gastro-esophageal reflux disease without esophagitis; R29.6 Repeated falls; N18.9 Chronic kidney disease, unspecified; M10.9 Gout, unspecified; Z95.0 Presence of cardiac pacemaker; Z86.73 Personal history of transient ischemic attack (TIA), and cerebral infarction without residual deficits; Z87.01 Personal history of pneumonia (recurrent); Z82.49 Family history of ischemic heart disease and other diseases of the circulatory system; Z80.9 Family history of malignant neoplasm, unspecified; Z79.899 Other long term (current) drug therapy; Z87.891 Personal history of nicotine dependence
CPT/HCPCS: 36415; 36430; 71045; 74176; 80053; 81001; 83605; 83690; 83735; 83880; 84484; 85008; 85025; 86885; 86900; 86901; 86920; 87040; 87081; 93005; 99285; A4314; A4349; A6212; A6213; A6222; A6223; A6446; A6449; C1758; C9113; G0378; J2270; J7030; J7040; P9016